=== PATIENT | male | born 1990 | race Caucasian/White ===

== ENCOUNTER 2017-08-28 06:58 | Day surgery (SDC) | payer OTHER ==
[~2017-08-28] VITALS: Ht 172.7 cm; Wt 68.0 kg
[~2017-08-28 06:58] MED LIST: ARNU1INH3 INH; CLON-412 PO; FLUTISP PO; HYDR50TA70 PO; LIDOCAINE W/EPINEPHRINE 1% 20ML VIAL As Ordered ONE; SUBO8MIS SL; WELLTAB40 PO
[2017-08-28] MEDS ORDERED: LR 1,000 ML IV ONE (07:15)
[2017-08-28] MEDS ORDERED: ACETAMINOPHEN 500 MG TAB As Ordered ONE (08:40)
[2017-08-28] MEDS ORDERED: METHYLENE BLUE 0.5% (5MG/ML) 10 ML AMP (PROVAYBLUE)(Q9968 PER 1MG) As Ordered ONE (08:42)
[2017-08-28] MEDS ORDERED: ACETAMINOPHEN 500 MG TAB PO ONE (09:00)
[2017-08-28] MEDS ORDERED: fentaNYL 100 MCG/2 ML INJECTION (J3010) As Ordered ONE ×4 (09:18→11:23)
[2017-08-28] MEDS ORDERED: KETAMINE HCL 200 MG/20 ML VIAL As Ordered ONE (09:18)
[2017-08-28] MEDS ORDERED: MIDAZOLAM INJ 2 MG/2 ML VIAL (J2250) As Ordered ONE (09:18)
[2017-08-28] MEDS ORDERED: dexameTHASONE 4 MG/ML 1ML VIAL (J1100) As Ordered ONE (09:18)
[2017-08-28] MEDS ORDERED: PROPOFOL 200 MG/20 ML VIAL As Ordered ONE (09:19)
[2017-08-28] MEDS: OXYMETAZOLINE NASAL SPRAY (AFRIN) As Ordered ONE ×2 (09:19→09:42)
[2017-08-28] MEDS ORDERED: NEOSTIGMINE 10 MG/10 ML VIAL (J2710) As Ordered ONE (09:19)
[2017-08-28] MEDS ORDERED: ROCURONIUM BROMIDE 50 MG/5 ML VIAL As Ordered ONE (09:19)
[2017-08-28] MEDS ORDERED: METOCLOPRAMIDE INJ 10MG/2ML VIAL (J2765) As Ordered ONE (09:19)
[2017-08-28] MEDS ORDERED: LIDOCAINE 2% INJ 100 MG/5 ML SDV (FOR ANES.) As Ordered ONE (09:19)
[2017-08-28] MEDS ORDERED: ONDANSETRON 4MG/2ML VIAL (J2405) As Ordered ONE (09:19)
[2017-08-28] MEDS: EPINEPHrine INJ 1 MG/ML 1ML AMP As Ordered ONE ×2 (09:20→09:38)
[2017-08-28] MEDS ORDERED: GLYCOPYRROLATE INJ 0.2 MG/ML 2 ML VIAL As Ordered ONE (09:20)
[2017-08-28] MEDS ORDERED: EPINEPHrine INJ 1 MG/ML 1ML AMP As Ordered ONE ×2 (09:42→09:50)
[2017-08-28] MEDS: fentaNYL 100 MCG/2 ML INJECTION (J3010) IV PRN ×7 (11:01→11:45)
[2017-08-28] MEDS ORDERED: METOCLOPRAMIDE INJ 10MG/2ML VIAL (J2765) IV PRN (11:30)
[2017-08-28] MEDS ORDERED: ONDANSETRON 4MG/2ML VIAL (J2405) IV PRN (11:30)
[2017-08-28] MEDS ORDERED: MEPERIDINE INJ 25 MG/ML VIAL (J2175) IV PRN (11:30)
[2017-08-28] MEDS ORDERED: LR 1,000 ML IV SCH (11:30)
[2017-08-28] MEDS ORDERED: PERCOCET 5MG/325MG TAB PO PRN (11:45)
[2017-08-28] MEDS ORDERED: ACETAMINOPHEN TAB 650MG DOSE (2X325MG) PO PRN (11:45)
[2017-08-28] MEDS ORDERED: PERCOCET 5MG/325MG TAB PO ONE (12:15)
[2017-08-28 12:25] VITALS: BP 150/76
--- NOTE | 2017-08-29 10:34 | RO ---
DATE OF PROCEDURE: 08/28/2017 PREOPERATIVE DIAGNOSES: Nasal polyposis, chronic sinusitis, and Samter's triad. POSTOPERATIVE DIAGNOSES: Nasal polyposis, chronic sinusitis, and Samter's triad. PROCEDURE: Bilateral endoscopic nasal polypectomy with anterior ethmoidectomy. SURGEON: Dr. 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 He had been scheduled for surgery several times but, because he was in and out of retirement, he had to postpone his surgery. He had been pretreated with prednisone in the past and apparently was given prednisone to take prior to surgery but claims he only took 20 mg 3 days before surgery. DESCRIPTION OF PROCEDURE: Satisfactory general endotracheal anesthesia administered. Pharyngeal pack placed. Nose prepared for surgery by placing cotton soaked pledgets with Afrin solution in the nasal cavity bilaterally. Nose was completely filled with fibrotic and edematous polyps. It appeared that he had no significant preparation. It was felt at this point that complete surgery would be almost impossible because of the amount of polyp load without preparation, and it was elected to proceed with just a nasal polypectomy endoscopically to allow him nasal airway to relieve his symptoms of nasal obstruction. Surgery was first started on the left side with 1% xylocaine with 1:100,000 epinephrine used to inject the gross polyps that were seen. The endoscope with a 0-degree telescope and the microdebrider was the primary instrument. Resection of the gross polyps was started, but of course they were quite vascular, fibrotic, and bleeding was constantly an issue throughout the resection of the gross polyps. The polyps were chased into the middle meatus on the left side, and adrenaline pledgets had to be used consistently to control the constant oozing from the raw surface of the polyps. No attempt was made to do a dissection ethmoidectomy because of the amount of bleeding encountered and lack of preparation. All the gross polyps were removed from the nasal cavity all the way posteriorly to the back of the middle turbinate. Again, no attempt was made to do an ethmoidectomy at this point because of the tremendous amount of oozing and bleeding from the polyp tissue. Adrenaline pledgets were used to constantly pack the left side. Then the surgery was started on the right side with a similar intent to resect the gross polyp disease for correction of the nasal airway for him, but no attempt was made to proceed with complete ethmoidectomy. Again, adrenaline pledgets were used consistently during the resection and once the nasal airway was established, adrenaline pledgets were used to pack both sides of the nose. When these removed, some Surgicel pledgets were placed over some raw surfaces that were consistently oozing. Then a Phillip Sinus-Renzo was situated to hold the area of bleeding temporarily. When the Phillip Sinus-Renzo was removed, the bleeding had markedly improved and then NasoPore was placed into each side of the nose with Surgicel pledgets using to line the cavity which had been created. Two NasoPores were placed on the right side; one was placed on the left. The pharyngeal pack removed. Throat suctioned. Patient was awakened under deep anesthesia with no significant bleeding during the extubation. He tolerated the procedure well and was sent to recovery in satisfactory condition. Plans will be made to bring him back in the future, probably within the next 3-6 months after being appropriately treated with prednisone for 30 days, to undergo further surgery.
== END 2017-08-28 12:42 | disposition home or self-care (01) ==
LOC: M SDC 06:58
PROVIDERS: ATTEND Specialist
DX: J33.0 Polyp of nasal cavity (principal); J32.4 Chronic pansinusitis; J45.909 Unspecified asthma, uncomplicated; F41.9 Anxiety disorder, unspecified; F32.9 Major depressive disorder, single episode, unspecified; G47.00 Insomnia, unspecified; Z79.899 Other long term (current) drug therapy; Z79.51 Long term (current) use of inhaled steroids; Z88.6 Allergy status to analgesic agent; F17.210 Nicotine dependence, cigarettes, uncomplicated

== ENCOUNTER → 2017-11-06 | Outpatient (CLI) | payer MEDICAID | LOC: M OUTALCOH 07:54 | DX: Z13.9 Encounter for screening, unspecified (principal); F13.20 Sedative, hypnotic or anxiolytic dependence, uncomplicated; F15.20 Other stimulant dependence, uncomplicated; F10.20 Alcohol dependence, uncomplicated ==

== ENCOUNTER 2017-11-14 14:13 | Outpatient (RCR) | payer MEDICAID | END 2017-11-26 | LOC: M OUTALCOH 14:13 | DX: F11.20 Opioid dependence, uncomplicated (principal); F13.20 Sedative, hypnotic or anxiolytic dependence, uncomplicated; F15.20 Other stimulant dependence, uncomplicated; Z72.0 Tobacco use ==

== ENCOUNTER 2017-12-12 14:36 | Outpatient (RCR) | payer MEDICAID | END 2017-12-27 | LOC: M OUTALCOH 12-19 11:00 | DX: F11.20 Opioid dependence, uncomplicated (principal); F13.20 Sedative, hypnotic or anxiolytic dependence, uncomplicated; F15.20 Other stimulant dependence, uncomplicated; Z72.0 Tobacco use ==

== ENCOUNTER 2018-01-09 10:26 | Outpatient (RCR) | payer MEDICAID | END 2018-01-26 | LOC: M OUTALCOH 01-16 11:00 | DX: F11.20 Opioid dependence, uncomplicated (principal); F13.20 Sedative, hypnotic or anxiolytic dependence, uncomplicated; F15.20 Other stimulant dependence, uncomplicated; Z72.0 Tobacco use ==

== ENCOUNTER → 2018-02-19 | Outpatient (CLI) | payer MEDICAID | LOC: M OUTALCOH 13:49 | DX: F11.20 Opioid dependence, uncomplicated (principal); F13.20 Sedative, hypnotic or anxiolytic dependence, uncomplicated ==

== ENCOUNTER 2018-03-02 09:49 | Outpatient (RCR) | payer MEDICAID | END 2018-03-28 | LOC: M OUTALCOH 03-20 08:45 | DX: F11.20 Opioid dependence, uncomplicated (principal); F13.20 Sedative, hypnotic or anxiolytic dependence, uncomplicated; F15.20 Other stimulant dependence, uncomplicated; Z72.0 Tobacco use ==

== ENCOUNTER 2018-04-03 15:56 | Outpatient (RCR) | payer MEDICAID | END 2018-04-28 | LOC: M OUTALCOH 15:56 | DX: F11.20 Opioid dependence, uncomplicated (principal); F13.20 Sedative, hypnotic or anxiolytic dependence, uncomplicated; F15.20 Other stimulant dependence, uncomplicated; F17.200 Nicotine dependence, unspecified, uncomplicated ==

== ENCOUNTER 2018-06-03 15:14 | Outpatient (RCR) | payer MEDICAID | END 2018-06-28 | LOC: M OUTALCOH 15:14 | DX: F11.20 Opioid dependence, uncomplicated (principal); F13.20 Sedative, hypnotic or anxiolytic dependence, uncomplicated; F15.20 Other stimulant dependence, uncomplicated; Z72.0 Tobacco use ==

== ENCOUNTER 2018-07-03 13:00 | Outpatient (RCR) | payer MEDICAID | END 2018-07-29 | LOC: M OUTALCOH 13:00 | DX: F11.20 Opioid dependence, uncomplicated (principal); F13.20 Sedative, hypnotic or anxiolytic dependence, uncomplicated; F15.20 Other stimulant dependence, uncomplicated; F17.200 Nicotine dependence, unspecified, uncomplicated ==

== ENCOUNTER → 2018-07-17 | Outpatient (REF) | payer MEDICAID ==
[2018-07-23 17:40] LABS: OXYCODONE SCREEN Negative ng/mL (Cutoff:5)
== END ==
LOC: M LABDRAW1 15:40
DX: F11.20 Opioid dependence, uncomplicated (principal)
CPT/HCPCS: 36415

== ENCOUNTER 2018-08-03 14:28 | Outpatient (RCR) | payer MEDICAID | END 2018-08-28 | LOC: M OUTALCOH 08-05 15:00 | DX: F11.20 Opioid dependence, uncomplicated (principal); F13.20 Sedative, hypnotic or anxiolytic dependence, uncomplicated; F15.20 Other stimulant dependence, uncomplicated; F17.200 Nicotine dependence, unspecified, uncomplicated ==

== ENCOUNTER 2018-09-21 16:00 | Outpatient (RCR) | payer MEDICAID ==
[~2018-09-21 16:00] MED LIST changes: -LIDOCAINE W/EPINEPHRINE 1% 20ML VIAL As Ordered ONE
== END 2018-09-28 ==
LOC: M OUTALCOH 16:00
PROVIDERS: ATTEND Psychiatry & Neurology Psychiatry
DX: F11.20 Opioid dependence, uncomplicated (principal); F13.20 Sedative, hypnotic or anxiolytic dependence, uncomplicated; F15.20 Other stimulant dependence, uncomplicated; F17.200 Nicotine dependence, unspecified, uncomplicated

== ENCOUNTER → 2018-10-12 | Outpatient (REF) ==
[2018-10-12 19:48] LABS: RUBELLA IgG QUALITATIVE IMMUNE (IMMUNE)
== END ==
LOC: M LAB 16:01
PROVIDERS: ATTEND Nurse Practitioner Adult Health
DX: Z00.00 Encounter for general adult medical examination without abnormal findings (principal)

== ENCOUNTER 2018-10-16 11:00 | Outpatient (RCR) | payer MEDICAID | END 2018-10-29 | LOC: M OUTALCOH 11:00 | PROVIDERS: ATTEND Psychiatry & Neurology Psychiatry | DX: F11.20 Opioid dependence, uncomplicated (principal); F13.20 Sedative, hypnotic or anxiolytic dependence, uncomplicated; F15.20 Other stimulant dependence, uncomplicated; Z72.0 Tobacco use ==

== ENCOUNTER 2018-11-24 15:51 | Outpatient (RCR) | payer MEDICAID | END 2018-11-26 | LOC: M OUTALCOH 15:51 | PROVIDERS: ATTEND Psychiatry & Neurology Psychiatry | DX: F11.20 Opioid dependence, uncomplicated (principal); F13.20 Sedative, hypnotic or anxiolytic dependence, uncomplicated; F15.20 Other stimulant dependence, uncomplicated; Z72.0 Tobacco use ==

== ENCOUNTER 2019-04-11 14:06 | Emergency (ER) | payer MEDICAID, OTHER ==
[~2019-04-11] VITALS: Ht 172.7 cm; Wt 70.5 kg
[2019-04-11 14:06] VITALS: BP 134/72
[2019-04-11] MEDS ORDERED: SUBO8MIS (14:12)
[2019-04-11] MEDS ORDERED: ADV500INH INH (14:12)
[2019-04-11] MEDS ORDERED: ALBU8.5H (14:12)
== END 2019-04-11 15:17 | disposition left against medical advice (07) ==
LOC: M ED 14:06
DX: Z53.21 Procedure and treatment not carried out due to patient leaving prior to being seen by health care provider (principal)

== ENCOUNTER 2019-05-12 13:32 | Emergency (ER) | payer OTHER ==
[~2019-05-12] VITALS: Ht 172.7 cm; Wt 74.1 kg
[~2019-05-12 13:32] MED LIST changes: +ADV500INH INH; +ALBU8.5H; +SUBO8MIS
[2019-05-12] MEDS ORDERED: KEFL500C17 PO (13:40)
[2019-05-12 15:17] LABS: BASO # 0.1 10^3/uL (0.0-0.2); BASO % 0.7 % (0.0-1.0); EOS # 0.7 10^3/uL (0.0-0.50); EOS % 6.4 % (0.0-3.0); HEMATOCRIT 39.2 % (42.0-52.0); HEMOGLOBIN 13.6 g/dl (13.5-17.5); LYMPH % 18.4 % (24.0-44.0); MEAN CORPUSCULAR HGB CONC 34.7 g/dl (32.0-36.5); MEAN CORPUSCULAR VOLUME 89.3 fl (80.0-96.0); MONO % 9.1 % (0.0-5.0); NEUTROPHILS # 7.1 10^3/uL (1.8-7.7); PLATELET COUNT, AUTOMATED 224 10^3/uL (150-450); RED BLOOD COUNT 4.39 10^6/uL (4.30-6.10); WHITE BLOOD COUNT 10.9 10^3/uL (4.0-10.0)
[2019-05-12 15:39] LABS: BLOOD UREA NITROGEN 17 MG/DL (7-18); C REACTIVE PROTEIN QUANTITATIV 4.29 MG/DL (0.00-0.30); CALCIUM LEVEL 8.6 MG/DL (8.5-10.1); CARBON DIOXIDE LEVEL 26 MEQ/L (21-32); CHLORIDE LEVEL 106 MEQ/L (98-107); CREATININE FOR GFR 0.71 MG/DL (0.70-1.30); GLOMERULAR FILTRATION RATE > 60.0 (>60); GLUCOSE, FASTING 93 MG/DL (70-100); POTASSIUM SERUM 4.1 MEQ/L (3.5-5.1); SODIUM LEVEL 139 MEQ/L (136-145)
[2019-05-12 15:54] LABS: ERYTHROCYTE SEDIMENTATION RATE 11 mm/hr (0-15)
[2019-05-12] MEDS ORDERED: CLINDAMYCIN 150 MG CAP PO ONE (16:00)
[2019-05-12] MEDS ORDERED: CLEO300C2 PO (16:42)
[2019-05-12 16:56] VITALS: BP 135/71
--- NOTE | 2019-05-12 17:00 | REP ---
Hand series: Two views. History: Swelling. Cellulitis. Findings: AP and lateral views of the left hand demonstrate diffuse moderate soft tissue swelling dorsally over the metacarpals and carpal region. This appears to extend into the distal forearm. No soft tissue gas is seen. No opaque foreign body is noted. No fracture is seen. Bones joints and soft tissues are otherwise unremarkable. Impression: Diffuse dorsal soft tissue swelling. No opaque foreign body or fracture seen. Electronically Signed by Isael Ram MD 05/12/2019 09:07 P
== END 2019-05-12 17:05 | disposition home or self-care (01) ==
LOC: M ED 13:32
DX: L03.114 Cellulitis of left upper limb (principal); W26.8XXA Contact with other sharp object(s), not elsewhere classified, initial encounter; Y92.233 Cafeteria of hospital as the place of occurrence of the external cause; Y93.G1 Activity, food preparation and clean up; Y99.0 Civilian activity done for income or pay; F17.200 Nicotine dependence, unspecified, uncomplicated; Z88.6 Allergy status to analgesic agent; Z79.899 Other long term (current) drug therapy; Z79.51 Long term (current) use of inhaled steroids

== ENCOUNTER 2019-05-30 16:16 | Emergency (ER) | payer OTHER ==
[~2019-05-30] VITALS: Ht 172.7 cm; Wt 71.3 kg
[2019-05-30 16:16] VITALS: BP 133/84
[~2019-05-30 16:16] MED LIST changes: +CLEO300C2 PO; +KEFL500C17 PO
[2019-05-30] MEDS ORDERED: VARE05TA (16:22)
== END 2019-05-30 17:22 | disposition home or self-care (01) ==
LOC: M ED 16:16
DX: M77.9 Enthesopathy, unspecified (principal); R22.32 Localized swelling, mass and lump, left upper limb; Z88.8 Allergy status to other drugs, medicaments and biological substances; F17.210 Nicotine dependence, cigarettes, uncomplicated

== ENCOUNTER 2019-08-25 09:58 | Emergency (ER) | payer OTHER ==
[~2019-08-25] VITALS: Ht 172.7 cm; Wt 68.4 kg
[~2019-08-25 09:58] MED LIST changes: +VARE05TA
[2019-08-25] MEDS ORDERED: MIRE1IUD IU (11:26)
[2019-08-25 11:32] LABS: BASO # 0.1 10^3/uL (0.0-0.2); BASO % 1.1 % (0.0-1.0); EOS # 0.9 10^3/uL (0.0-0.5); EOS % 14.1 % (0.0-3.0); HEMATOCRIT 44.7 % (42.0-52.0); HEMOGLOBIN 14.6 g/dl (13.5-17.5); LYMPH # 1.7 10^3/uL (1.5-5.0); LYMPH % 27.2 % (24.0-44.0); MEAN CORPUSCULAR HEMOGLOBIN 30.4 pg (27.0-33.0); MEAN CORPUSCULAR HGB CONC 32.7 g/dl (32.0-36.5); MEAN CORPUSCULAR VOLUME 93.1 fl (80.0-96.0); MONO # 0.6 10^3/uL (0.0-0.8); MONO % 8.9 % (0.0-5.0); NEUTROPHILS % 48.5 % (36.0-66.0); PLATELET COUNT, AUTOMATED 220 10^3/uL (150-450); WHITE BLOOD COUNT 6.2 10^3/uL (4.0-10.0)
[2019-08-25 11:57] LABS: BLOOD UREA NITROGEN 10 MG/DL (7-18); C REACTIVE PROTEIN QUANTITATIV 3.72 MG/DL (0.00-0.30); CALCIUM LEVEL 8.4 MG/DL (8.5-10.1); CARBON DIOXIDE LEVEL 24 MEQ/L (21-32); CHLORIDE LEVEL 108 MEQ/L (98-107); GLOMERULAR FILTRATION RATE > 60.0 (>60); GLUCOSE, FASTING 94 MG/DL (70-100); POTASSIUM SERUM 4.3 MEQ/L (3.5-5.1); SODIUM LEVEL 136 MEQ/L (136-145)
[2019-08-25] MEDS ORDERED: PRED20TA PO (12:55)
[2019-08-25] MEDS ORDERED: GABA-1171 PO (12:55)
[2019-08-25] MEDS ORDERED: predniSONE 20 MG TAB PO ONE (13:00)
[2019-08-25 13:07] VITALS: BP 121/67
--- NOTE | 2019-08-25 13:34 | ECGEPIP ---
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 Order Number: [id number] Reading MD: Damion Jean Measurements Intervals [place] Rate: 93 P: 81 MT: 165 QRS: 84 QRSD: 85 T: 56 QT: 336 QTc: 418 Interpretive Statements SINUS RHYTHM NO PRIORS FOR COMPARISON Electronically Signed on 08-25-2019 13:34:28 EST by Damion Jean
== END 2019-08-25 13:08 | disposition home or self-care (01) ==
LOC: M ED 09:58
DX: G62.9 Polyneuropathy, unspecified (principal); J45.901 Unspecified asthma with (acute) exacerbation; L59.0 Erythema ab igne [dermatitis ab igne]; Z79.890 Hormone replacement therapy; Z79.891 Long term (current) use of opiate analgesic; Z88.8 Allergy status to other drugs, medicaments and biological substances; F17.210 Nicotine dependence, cigarettes, uncomplicated

== ENCOUNTER 2019-08-28 09:20 | Emergency (ER) | payer OTHER ==
[~2019-08-28] VITALS: Ht 172.7 cm; Wt 67.4 kg
[~2019-08-28 09:20] MED LIST changes: +GABA-1171 PO; +MIRE1IUD IU; +PRED20TA PO
[2019-08-28] MEDS ORDERED: ALBUTEROL SULFATE 2.5 MG/0.5 ML INH NEB SOLN NEB ONE (10:00)
[2019-08-28] MEDS ORDERED: NS 1,000 ML IV ONE (10:00)
[2019-08-28 10:12] VITALS: BP 119/72
--- NOTE | 2019-08-28 10:17 | REP ---
Clinical: Dizziness and abnormal gait . Comparison: 09/11/2010 . Findings: The ventricles, sulci, and cisterns are normal in position and appearance. Zamudio-white differentiation is maintained. No acute intracranial hemorrhage, mass/mass effect, pathology or trauma/injury. No evidence for acute infarction. No extra-axial fluid collection. Calvarium is intact. Essentially complete opacification of the frontal, ethmoid, sphenoid and maxillary sinuses consistent with marked chronic pansinusitis. Impression: Marked pansinusitis. No evidence for acute intracranial pathology or trauma/injury. Electronically Signed by Migel Tiwari MD 08/28/2019 10:09 A
[2019-08-28] MEDS ORDERED: AUGM875T28 PO (11:01)
[2019-08-28] MEDS ORDERED: LIDO1CRE2 TOP (11:01)
== END 2019-08-28 11:37 | disposition home or self-care (01) ==
LOC: M ED 09:20
DX: G62.9 Polyneuropathy, unspecified (principal); L59.0 Erythema ab igne [dermatitis ab igne]; J32.4 Chronic pansinusitis; J45.909 Unspecified asthma, uncomplicated; F33.9 Major depressive disorder, recurrent, unspecified; F41.9 Anxiety disorder, unspecified; Z79.899 Other long term (current) drug therapy; Z79.891 Long term (current) use of opiate analgesic; Z88.8 Allergy status to other drugs, medicaments and biological substances; F17.210 Nicotine dependence, cigarettes, uncomplicated

== ENCOUNTER → 2019-09-17 | Outpatient (CLI) | payer OTHER ==
[~2019-09-17] MED LIST changes: +AUGM875T28 PO; +LIDO1CRE2 TOP
--- NOTE | 2019-09-17 10:00 | REP ---
Left upper extremity duplex venous ultrasound: History: Left arm pain, rule out venous thrombosis. Findings: The left internal jugular, axillary, brachial, basilic, and cephalic veins are anechoic and compressible in the left upper extremity. Color flow imaging is homogeneous. Spectral Doppler interrogation is unremarkable. There is no evidence of left upper extremity venous thrombosis. Impression: Negative left upper extremity duplex venous ultrasound. No evidence of venous thrombosis. Electronically Signed by Isael Rma MD 09/17/2019 09:52 A
== END ==
LOC: M RAD 07:48
PROVIDERS: ATTEND Family Medicine
DX: M79.609 Pain in unspecified limb (principal)

== ENCOUNTER → 2020-02-15 | Outpatient (CLI) | payer OTHER ==
--- NOTE | 2020-02-15 14:19 | REP ---
MAXILLOFACIAL CT STUDY WITHOUT CONTRAST: HISTORY: Nasal polyps. Chronic pansinusitis. Comparison is made with imaging from head CT study dated August 01, 2019. Comparison maxillofacial CT study July 11, 2016. CT FINDINGS: Digital preliminary distribution spec radiographs are unremarkable. Axial CT images show no evidence of intraorbital abnormality. Visualized intracranial structures are unremarkable. The deep facial soft tissues show no evidence of mass or adenopathy. There are tonsillar crypt calcifications bilaterally. Nodular changes are seen affecting the nasal turbinates bilaterally consistent with multiple nasal polyps. These are more confluent and appear more extensive than on the July 18, 2016 study. The bony nasal septum is essentially in the midline. The nasal turbinate soft tissues are obscured by nodular changes. The maxillary sinuses are completely opacified bilaterally. The ethmoid sinuses and frontal sinuses are completely opacified bilaterally as well consistent with extensive pansinusitis. The left sphenoid sinus is completely opacified. The right sphenoid sinus is partially aerated with moderate mucosal thickening. There is partial opacification in most of the mastoid air cells on the left. Right mastoid sinus appears normal. There is some fluid density material in the middle ear cavity on the left and the left tympanic membrane appears somewhat retracted. The right middle ear cavity is aerated and unremarkable. IMPRESSION: Extensive pansinusitis. All of the paranasal sinuses are affecting with the exception of the right mastoid. There are numerous confluent nasal polyp changes in the nasal cavity bilaterally. There is evidence of serous otitis media on the left with probable retraction of the left tympanic membrane. Electronically Signed by Isael Ram MD 02/15/2020 06:48 P
== END ==
LOC: M RAD 11:09
PROVIDERS: ATTEND Otolaryngology
DX: J32.4 Chronic pansinusitis (principal); J33.9 Nasal polyp, unspecified

== ENCOUNTER → 2020-04-07 | Outpatient (CLI) | payer OTHER ==
[~2020-04-07] MED LIST changes: +BENA25CA4 PO; +CLIN150C14 PO; +CLONI1TA PO; +CVS10CAP8 PO; +GABA-843 PO; +KLON1TAB PO
== END ==
LOC: M LABSMTC 09:45
PROVIDERS: ATTEND Anesthesiology
DX: Z01.818 Encounter for other preprocedural examination (principal); Z11.59 Encounter for screening for other viral diseases
CPT/HCPCS: C9803; U0003

== ENCOUNTER 2020-04-11 07:59 | Day surgery (SDC) | payer OTHER ==
[~2020-04-11] VITALS: Ht 172.7 cm; Wt 69.6 kg
[~2020-04-11 07:59] MED LIST changes: -CLIN150C14 PO
[2020-04-11] MEDS ORDERED: CLIN150C14 PO (08:29)
[2020-04-11] MEDS ORDERED: MIDAZOLAM INJ 2MG/2ML VIAL (J2250 PER 1MG) As Ordered ONE (09:21)
[2020-04-11] MEDS ORDERED: fentaNYL 250 MCG/5 ML INJECTION (J3010) As Ordered ONE (09:22)
[2020-04-11] MEDS ORDERED: propofoL 200 MG/20 ML VIAL As Ordered ONE (09:23)
[2020-04-11] MEDS ORDERED: EPINEPHrine 1MG/ML INJ 30ML MD-VIAL As Ordered ONE (10:39)
[2020-04-11] MEDS ORDERED: LIDOCAINE W/EPINEPHRINE 1% 20ML VIAL As Ordered ONE (10:39)
[2020-04-11] MEDS ORDERED: METHYLENE BLUE 0.5% (5MG/ML) 10 ML AMP (PROVAYBLUE) As Ordered ONE (10:39)
[2020-04-11] MEDS ORDERED: dexameTHASONE 4 MG/ML 1ML VIAL (J1100 PER 1MG) As Ordered ONE (10:43)
[2020-04-11] MEDS ORDERED: ONDANSETRON 4MG/2ML VIAL As Ordered ONE (10:44)
[2020-04-11] MEDS ORDERED: ROCURONIUM BROMIDE 50 MG/5 ML VIAL As Ordered ONE (10:44)
[2020-04-11] MEDS ORDERED: SUGAMMADEX SODIUM 500 MG/5 ML VIAL (BRIDION) As Ordered ONE (10:44)
[2020-04-11] MEDS ORDERED: LIDOCAINE 2% 100MG/5ML SDV (FOR ANES.) As Ordered ONE (10:45)
[2020-04-11] MEDS ORDERED: LABETALOL 100MG/20ML VIAL As Ordered ONE (12:22)
[2020-04-11] MEDS ORDERED: ONDANSETRON 4MG/2ML VIAL IV PRN (13:30)
[2020-04-11] MEDS ORDERED: ACETAMINOPH W/CODEINE #3 TAB UD PO PRN (13:30)
[2020-04-11] MEDS ORDERED: LR 1,000 ML IV SCH ×2 (13:30)
[2020-04-11] MEDS ORDERED: METOCLOPRAMIDE INJ 10MG/2ML VIAL (J2765 PER 1) IV PRN (13:30)
[2020-04-11] MEDS ORDERED: fentaNYL 100 MCG/2 ML INJECTION (J3010) IV PRN (13:30)
[2020-04-11] MEDS ORDERED: ACETAMINOPHEN 1000MG 100ML IV BTL (OFIRMEV) (J0131 PER 10MG) As Ordered ONE (14:55)
[2020-04-11] MEDS ORDERED: ACETAMINOPHEN *IV* 1,000 MG IV ONE ×2 (15:00)
[2020-04-11 17:02] VITALS: BP 114/58
--- NOTE | 2020-04-18 13:47 | RO ---
DATE OF PROCEDURE: 04/11/2020 PREPROCEDURE DIAGNOSIS: Chronic rhinosinusitis with polyposis. POSTPROCEDURE DIAGNOSIS: Chronic rhinosinusitis with polyposis. PROCEDURE: Bilateral polypectomies, antrostomies, ethmoidectomies, nasal fundal sinusotomy and sphenoidotomies. SURGEON: Dr. Jatinder Shields. HYDRAULIC LIFT DRIVER: ANESTHESIA: General. FINDINGS: There was a lot of scarring from the previous surgery and the middle turbinate was missing an anterior-inferior parts as well it was stuck down to the lateral nasal wall. There was purulent discharge within the left maxillary sinus so I did an irrigation after I opened it up to wash out all the material from the sinus. DESCRIPTION OF PROCEDURE: Under general anesthesia, the patient prepped and draped in the usual manner. I used pledgets soaked in adrenaline 1:100,000 and infiltrated the lidocaine and epinephrine. I did use the navigation system which was calibrated and then set up prior to the procedure. I started first on the right side. I removed the polypoid tissue from the inside of the nose. I then divided the middle turbinate, which was remaining from the lateral nasal wall and then opened up the ethmoid air cells. I did the same on the opposite side. Once this was done then I dissected from anterior to posterior, inferior to superior. I started anteriorly, dissected down through the ethmoid air cells using navigation to guide me. I then entered the sphenoid sinus and then enlarged that opening. I did the same procedure on the opposite side. Then what I did was remove any polypoid tissue from the lateral aspect of the middle turbinate. I then removed any polypoid tissue around the superior meatus. Then using 45 degree and angled suction, I removed the polypoid tissue that obstructed the nasofrontal area on both sides. I could see up into the nasofrontal sinus on both sides after that was done. Lastly, I opened the maxillary sinus starting first on the left side. There was purulent discharge, which I suctioned and then irrigated out. I enlarged that opening so the sinuses were all ventilated. I did the same on the right side. However, there was no purulent discharge within the sinus. Patient tolerated the procedure well. 100 mL of estimated blood loss. The patient was extubated, transferred to the recovery room in excellent condition. I did use Propel implants in between the middle turbinate and lateral nasal wall on both sides.
== END 2020-04-11 17:20 | disposition home or self-care (01) ==
LOC: M SDC 07:59
PROVIDERS: ATTEND Otolaryngology
DX: J32.9 Chronic sinusitis, unspecified (principal); J33.9 Nasal polyp, unspecified; B18.2 Chronic viral hepatitis C; F41.9 Anxiety disorder, unspecified; G47.00 Insomnia, unspecified; Z79.891 Long term (current) use of opiate analgesic; Z79.52 Long term (current) use of systemic steroids; J45.909 Unspecified asthma, uncomplicated; Z88.8 Allergy status to other drugs, medicaments and biological substances
CPT/HCPCS: 31255; 31267; 88305; C2625; J0131; J1100; J2250; J2405; J3010; Q9968

== ENCOUNTER → 2020-05-05 | Outpatient (CLI) | payer SELFPAY ==
[~2020-05-05] MED LIST changes: +CLIN150C14 PO
== END ==
LOC: M LABSMTC 10:00
PROVIDERS: ATTEND Family Medicine
DX: Z11.59 Encounter for screening for other viral diseases (principal)

== ENCOUNTER 2020-09-02 15:55 | Emergency (ER) | payer OTHER, SELFPAY ==
[~2020-09-02] VITALS: Ht 172.7 cm; Wt 65.7 kg
[2020-09-02 15:56] VITALS: BP 111/59
[2020-09-02] MEDS ORDERED: SPIR1CAP INH (16:06)
[2020-09-02] MEDS ORDERED: KLON2TAB PO (16:06)
[2020-09-02] MEDS ORDERED: LEVALBUTEROL HFA 45MCG/ACT 15 GM INHALER INH ONE (17:00)
[2020-09-02] MEDS ORDERED: VENTAER INH (17:22)
[2020-09-02] MEDS ORDERED: ALBU83IN NEB (17:22)
[2020-09-02] MEDS ORDERED: PRED20TA PO (17:24)
--- NOTE | 2020-09-02 18:58 | REPVR ---
PROCEDURE INFORMATION: Exam: XR Chest, 2 Views Exam date and time: 09/02/2020 4:47 PM Age: 29 years old Clinical indication: Shortness of breath; Additional info: SOB, cough R/O pneumonia TECHNIQUE: Imaging protocol: XR of the chest Views: 2 views. COMPARISON: CT Chest without contrast 06/05/2016 1:58 PM FINDINGS: Lungs: There is a stable focal increased density right upper lobe peripherally projecting just above the anterior 4th rib margin stable in appearance in comparison to the 06/05/2016 CT. On the prior study there are multiple bilateral pulmonary opacities which are not definitely seen on this chest x-ray. There is no new focal region of lung consolidation. Lungs are hyperinflated. Pleural space: No pleural effusions or pneumothorax. Heart/Mediastinum: Cardiomediastinal silhouette is not enlarged. Bones/joints: No significant skeletal findings. IMPRESSION: Stable lesion right upper lobe in comparison to the 06/05/2016 CT which is therefore likely benign. No acute findings. Electronically signed by: Mallorie Dsouza On 09/02/2020 18:58:50 PM
== END 2020-09-02 17:44 | disposition home or self-care (01) ==
LOC: M ED 15:55
DX: J45.901 Unspecified asthma with (acute) exacerbation (principal); F41.9 Anxiety disorder, unspecified; Z79.899 Other long term (current) drug therapy; Z88.8 Allergy status to other drugs, medicaments and biological substances; Z87.891 Personal history of nicotine dependence

== ENCOUNTER 2023-01-16 12:11 | Emergency (ER) | payer OTHER ==
[~2023-01-16] VITALS: Ht 175.3 cm; Wt 68.6 kg
[~2023-01-16 12:11] MED LIST changes: +ALBU2.5V10 NEB; -CLIN150C14 PO; +CLIN150C17 PO; -CVS10CAP8 PO; +FLUT50SP17 PO; -FLUTISP PO; +GABA-282 PO; -GABA-843 PO; +KLON2TAB PO; +MELA10CA6 PO; +SPIR1CAP INH; +VENTAER INH
[2023-01-16 14:23] LABS: BASO % 0.2 % (0.0-1.0); HEMATOCRIT 41.4 % (42.0-52.0); HEMOGLOBIN 13.7 g/dl (13.5-17.5); LYMPH # 0.9 10^3/uL (1.5-5.0); LYMPH % 8.8 % (24.0-44.0); MEAN CORPUSCULAR HEMOGLOBIN 29.8 pg (27.0-33.0); MEAN CORPUSCULAR HGB CONC 33.1 g/dl (32.0-36.5); MEAN CORPUSCULAR VOLUME 90.2 fl (80.0-96.0); MONO # 0.3 10^3/uL (0.0-0.8); MONO % 2.7 % (2.0-8.0); NEUTROPHILS # 8.5 10^3/uL (1.5-8.5); NEUTROPHILS % 88.1 % (36.0-66.0); PLATELET COUNT, AUTOMATED 203 10^3/uL (150-450); RED BLOOD COUNT 4.59 10^6/uL (4.30-6.10); WHITE BLOOD COUNT 9.7 10^3/uL (4.0-10.0)
[2023-01-16 15:01] VITALS: BP 135/66
[2023-01-16 15:36] LABS: ERYTHROCYTE SEDIMENTATION RATE 9 mm/hr (0-15)
== END 2023-01-16 15:05 | disposition home or self-care (01) ==
LOC: M ED 12:11
DX: I73.1 Thromboangiitis obliterans [Buerger's disease] (principal); J45.909 Unspecified asthma, uncomplicated; F11.20 Opioid dependence, uncomplicated; F41.9 Anxiety disorder, unspecified; F17.200 Nicotine dependence, unspecified, uncomplicated; Z88.6 Allergy status to analgesic agent; Z79.51 Long term (current) use of inhaled steroids; Z79.899 Other long term (current) drug therapy

== ENCOUNTER → 2023-02-17 | Outpatient (CLI) | payer OTHER | LOC: M RAD 16:51 | PROVIDERS: ATTEND Family Medicine | DX: E04.1 Nontoxic single thyroid nodule (principal) ==

== ENCOUNTER → 2025-06-02 | Outpatient (RCR) ==
[~2025-06-02] MED LIST changes: -ADV500INH INH; +ADVA1AER10 INH; +CLON-952 PO; -FLUT50SP17 PO; +FLUTISP PO; +GABA-1172 PO; -GABA-282 PO; -KLON1TAB PO; +KLON1TAB13 PO; -KLON2TAB PO; -LIDO1CRE2 TOP; +LIDO4CRE12 TOP
== END ==
LOC: M EMPSKH 05-29 15:15
PROVIDERS: ATTEND Family Medicine
DX: Z20.828 Contact with and (suspected) exposure to other viral communicable diseases (principal)